=== PATIENT | female | born 1990 | race African-American/Black ===

== ENCOUNTER 2017-09-10 11:15 | Emergency (ER) | payer SELFPAY ==
[2017-09-10 11:26] VITALS: BP 114/61; PULSE 89; TEMP 98.3; BMI 22.6
[2017-09-10 12:20] LABS: PH,URINE 7.5 (4.5-8); URINE APPEARANCE Clear; URINE BILIRUBIN Negative (NEGATIVE); URINE GLUCOSE (UA) Negative (NEGATIVE); URINE KETONE Negative (NEGATIVE); URINE LEUK ESTERASE Negative (NEGATIVE); URINE NITRITE Negative (NEGATIVE); URINE PROTEIN Negative (NEGATIVE)
[2017-09-10 12:22] LABS: URINE BLOOD Trace-intact (NEGATIVE); URINE COLOR YELLOW
[2017-09-10 12:23] LABS: URINE BACTERIA FEW /hpf (NEGATIVE); URINE RBC 0-3 /hpf (0-3); URINE WBC 0-3 /hpf (3-5)
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
[2017-09-10 13:06] LABS: BASOPHIL 3.6 % (0-2.0); EOSINOPHIL 1.6 % (0-4.5); MCH 28.8 pg (25.7-33.7); MCHC 33.3 g/dl (32.0-36.0); MEAN CELL VOLUME 86.5 fl (80-96); MEAN PLT VOLUME 10.8 fl (7.5-11.1); NEUTROPHILS 56.2 % (42.8-82.8); PLATELET COUNT 206 K/MM3 (134-434); RDW 13.3 % (11.6-15.6); WHITE BLOOD COUNT 7.3 K/mm3 (4.0-10.8)
[2017-09-10 13:17] LABS: ALK PHOS 48 U/L (32-92); ANION GAP 4 (8-16); BILIRUBIN,TOTAL 0.6 mg/dl (0.2-1.0); CO2 26 mmol/L (22-28); CREATININE 0.8 mg/dl (0.6-1.3); GLUCOSE,RANDOM 88 mg/dl (74-106); SGOT/AST 32 U/L (10-42); SGPT/ALT 14 U/L (10-40); TOT PROT 7.4 g/dl (6.4-8.3)
[2017-09-10] MEDS ORDERED: DIPHTH,PERTUSS(ACELL),TET VAC 0.5 ML VIAL IM ONE (16:10)
[2017-09-10] MEDS ORDERED: NAPROXEN 500 MG TABLET (FP) ONE (16:17)
[2017-09-10] MEDS ORDERED: NAPROXEN 500 MG TABLET (FP) PO ONE (16:24)
[2017-09-10] MEDS ORDERED: AMOX TR/POT CLAV 875MG/125MG TABLETS (FP) ONE (17:07)
[2017-09-10] MEDS ORDERED: AMOX TR/POT CLAV 875MG/125MG TABLETS (FP) PO ONE (17:27)
[2017-09-11 23:00] LABS: URINE HYALINE CAST 0-3 /lpf
== END 2017-09-10 17:37 | disposition home or self-care (01) ==
LOC: FER 11:15
DX: Z04.3 Encounter for examination and observation following other accident (principal); Y04.2XXA Assault by strike against or bumped into by another person, initial encounter; Y93.89 Activity, other specified; Y92.9 Unspecified place or not applicable; F17.210 Nicotine dependence, cigarettes, uncomplicated; D64.9 Anemia, unspecified
CPT/HCPCS: 36415; 70450-TC; 70486-TC; 71260-TC; 72125-TC; 73130-TC-RT; 74177-TC; 80053; 81003; 81015; 83690; 83735; 84484; 84703; 85025; 99282-25

== ENCOUNTER 2017-11-22 02:58 | Emergency (ER) | payer OTHER ==
[2017-11-22 05:04] VITALS: TEMP 98; BMI 21.9
[2017-11-22] MEDS ORDERED: METOCLOPRAMIDE HCL INJECTION 10 MG/2 ML VIAL IVPUSH ONE (06:16)
[2017-11-22] MEDS ORDERED: SODIUM CHLORIDE 1,000 ML IV STA (06:16)
--- NOTE | 2017-11-22 06:22 | PDOC ---
History of Present Illness - General Chief Complaint: Headache Stated Complaint: HEADACHE Time Seen by Provider: 11/22/17 06:10 History Source: Patient - History of Present Illness Initial Comments: 11/22/17 06:17 27 year old female c/o frontal headache x1 day with associated nausea and photophobia. patient has a history of migraines. " I ran out of my medication." denies head injury or trauma, denies weakness, dizziness. headache is similar to her usual migraines Past History - Past Medical History Allergies/Adverse Reactions: Allergies Allergy/AdvReac Type Severity Reaction Status Date / Time No Known Drug Allergies Allergy Verified 11/22/17 05:02 Home Medications: Ambulatory Orders Amox-Tr/K Cl [Augmentin - 875Mg Tablet] 1 tab PO BID #14 tablet 09/10/17 Naproxen [Naprosyn -] 500 mg PO BID PRN #28 tablet 09/10/17 Anemia: Yes Asthma: No Cancer: No Cardiac Disorders: No Diabetes: No Seizures: No - Reproductive History Therapeutic (s) & number: Yes - Immunization History Td Vaccination: No (UNKNOWN) Immunization Up to Date: Yes - Suicide/Smoking/Psychosocial Hx Smoking Status: Yes Smoking History: Current every day smoker Have you smoked in the past 12 months: No Number of Cigarettes Smoked Daily: 2 Information on smoking cessation initiated: No 'Breaking Loose' booklet given: 09/10/17 Hx Alcohol Use: No Drug/Substance Use Hx: No Substance Use Type: Alcohol Hx Substance Use Treatment: No Review of Systems - Review of Systems Able to Perform ROS?: Yes Is the patient limited Belgian proficient: No Constitutional: No: Symptoms Reported, See HPI, Chills, Diaphoresis, Fever, Loss of Appetite, Malaise, Night Sweats, Weakness, Weight Stable, Unintentional Wgt. Loss, Unexplained wgt Loss, Other HEENTM: Yes: Other (photophobia). No: Symptoms Reported, See HPI, Eye Pain, Blurred Vision, Tearing, Recent change in vision, Double Vision, Cataracts, Ear Pain, Ocular Prothesis, Ear Discharge, Nose Pain, Nose Congestion, Tinnitus, Nose Bleeding, Hearing Loss, Throat Pain, Throat Swelling, Mouth Pain, Dental Problems, Difficulty Swallowing, Mouth Swelling ABD/GI: Yes: Nausea. No: Symptoms Reported, See HPI, Abdominal Distended, Abd. Pain w/ defecation, Blood Streaked Bowels, Constipated, Diarrhea, Difficulty Swallowing, Poor Appetite, Poor Fluid Intake, Rectal Bleeding, Vomiting, Indigestion, Abdominal cramping, Tarry Stools, Other Neurological: Yes: Headache. No: Symptoms reported, See HPI, Numbness, Paresthesia, Pre-Existing Deficit, Seizure, Tingling, Tremors, Weakness, Unsteady Gait, Ataxia, Dizziness, Other *Physical Exam - Vital Signs Last Vital Signs Temp Pulse Resp BP Pulse Ox 98.0 F 109 H 14 114/71 98 11/22/17 05:02 11/22/17 05:02 11/22/17 05:02 11/22/17 05:02 11/22/17 05:02 - Physical Exam General Appearance: Yes: Appropriately Dressed HEENT: positive: Other (PERRLA) Respiratory/Chest: positive: Lungs Clear, Normal Breath Sounds Neurologic: positive: manager production II-XII NML intact, Fully Oriented, Alert, Normal Mood/ Affect, Normal Response, Motor Strength 5/5 Progress Note - Progress Note Progress Note: A: migraines P: IVF Reglan benadryl urine . consider toradol once urine is back. *DC/Admit/Observation/Transfer Diagnosis at time of Disposition: Migraine Qualifiers: Migraine type: unspecified Status migrainosus presence: without status migrainosus Intractability: not intractable Qualified Code(s): G43.909 - Migraine, unspecified, not intractable, without status migrainosus - Referrals Referrals: Daryl Mcgregor MD [Primary Care Provider] - - Patient Instructions - Post Discharge Activity
[2017-11-22] MEDS ORDERED: METOCLOPRAMIDE HCL INJECTION 10 MG/2 ML VIAL ONE (06:34)
[2017-11-22] MEDS ORDERED: KETOROLAC TROMETHAMINE 60 MG/2 ML VIAL IVPUSH ONE (07:55)
--- NOTE | 2017-11-22 07:56 | PDOC ---
*Physical Exam - Vital Signs Last Vital Signs Temp Pulse Resp BP Pulse Ox 98.0 F 109 H 14 114/71 98 11/22/17 05:02 11/22/17 05:02 11/22/17 05:02 11/22/17 05:02 11/22/17 05:02 - Physical Exam General Appearance: Yes: Appropriately Dressed. No: Apparent Distress HEENT: positive: CHULA, Normal ENT Inspection, Normal Voice, Symmetrical, TMs Normal, Pharynx Normal Neck: positive: Trachea midline. negative: Tender, Tender lateral, Tender midline Respiratory/Chest: positive: Lungs Clear, Normal Breath Sounds. negative: Respiratory Distress, Accessory Muscle Use Cardiovascular: positive: Regular Rhythm, Tachycardia Gastrointestinal/Abdominal: positive: Normal Bowel Sounds, Soft. 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 NML intact, Fully Oriented, Alert, Normal Mood/ Affect, Normal Response, Motor Strength 03/17 ED Treatment Course - ADDITIONAL ORDERS Additional order review: Laboratory Results 11/22/17 06:18 Urine HCG, Qual Negative - Medications Given in the ED: ED Medications Discontinued Medications Generic Name Dose Route Start Last Admin Trade Name Freq PRN Reason Stop Dose Admin Diphenhydramine HCl 25 mg 11/22/17 06:17 11/22/17 06:51 Benadryl Injection - IVPB 11/22/17 06:18 25 mg ONCE ONE Administration Sodium Chloride 1,000 mls @ 1,000 mls/hr 11/22/17 06:16 11/22/17 06:51 Normal Saline - IV 11/22/17 07:15 1,000 mls/hr ASDIR STA Administration Metoclopramide HCl 10 mg 11/22/17 06:16 11/22/17 06:51 Reglan Injection - IVPUSH 11/22/17 06:17 10 mg ONCE ONE Administration Medical Decision Making - Medical Decision Making 11/22/17 07:54 I have received report from [Oral Yancey TELEPHONE CLAIMS REPRESENTATIVE] regarding this patient. Pt's initial chief complaint: [Migraine, ran out of medication] Pt's work up completed prior to sign out: [ Labs, UA, Reglan, urine ] Pt treatment given from prior staff: [Reglan, IV fluids] Pt plan to be completed: [Waiting urine consider Toradol Laboratory Results - last 24 hr 11/22/17 06:18 Urine HCG, Qual Negative ] Dispo: [ Pending] 11/22/17 10:09 She states relief after medication will DC patient home to follow-up with in the next 24 hours. Increase fluids, I discussed the physical exam findings, ancillary test results and final diagnoses with the patient. I answered all of the patient's questions. The patient was satisfied with the care received and felt comfortable with the discharge plan and treatment plan. The patient will call to arrange follow-up and will return to the Emergency Department with any new, persistent or worsening symptoms. *DC/Admit/Observation/Transfer Diagnosis at time of Disposition: Migraine Qualifiers: Migraine type: unspecified Status migrainosus presence: without status migrainosus Intractability: not intractable Qualified Code(s): G43.909 - Migraine, unspecified, not intractable, without status migrainosus - Discharge Dispostion Disposition: HOME Condition at time of disposition: Good Admit: No - Referrals Referrals: Daryl Mcgregor MD [Primary Care Provider] - (Please see doctor tomorrow 11/23 at 4:15 pm) - Patient Instructions Printed Discharge Instructions: Migraine Headaches (Alternative Therapy), DI for Migraine Additional Instructions: I have made an appointment for you to see your doctor tomorrow at 4:15 pm please take Motrin tonight as needed for pain. - Post Discharge Activity
--- NOTE | 2017-11-22 08:07 | PDOC ---
*Physical Exam - Vital Signs Last Vital Signs Temp Pulse Resp BP Pulse Ox 98.0 F 109 H 14 114/71 98 11/22/17 05:02 11/22/17 05:02 11/22/17 05:02 11/22/17 05:02 11/22/17 05:02 - Physical Exam Comments: 11/22/17 08:07 The patient was examined by [SHIRA Yancey/SHIRA Lemon] under my direct supervision. I personally evaluated the patient. I concur with the above findings and the plan of care. Patient is a 27-year-old female who presents with atypical migraine. I do not suspect subarachnoid hemorrhage at this time. Will hydrate, we'll administer Benadryl and Reglan. Will reassess. ED Treatment Course - ADDITIONAL ORDERS Additional order review: Laboratory Results 11/22/17 06:18 Urine HCG, Qual Negative - Medications Given in the ED: ED Medications Discontinued Medications Generic Name Dose Route Start Last Admin Trade Name Serjio PRN Reason Stop Dose Admin Diphenhydramine HCl 25 mg 11/22/17 06:17 11/22/17 06:51 Benadryl Injection - IVPB 11/22/17 06:18 25 mg ONCE ONE Administration Sodium Chloride 1,000 mls @ 1,000 mls/hr 11/22/17 06:16 11/22/17 06:51 Normal Saline - IV 11/22/17 07:15 1,000 mls/hr ASDIR STA Administration Metoclopramide HCl 10 mg 11/22/17 06:16 11/22/17 06:51 Reglan Injection - IVPUSH 11/22/17 06:17 10 mg ONCE ONE Administration *DC/Admit/Observation/Transfer Diagnosis at time of Disposition: Migraine Qualifiers: Migraine type: unspecified Status migrainosus presence: without status migrainosus Intractability: not intractable Qualified Code(s): G43.909 - Migraine, unspecified, not intractable, without status migrainosus - Referrals Referrals: Daryl Mcgregor MD [Primary Care Provider] - - Patient Instructions - Post Discharge Activity
[2017-11-22] MEDS ORDERED: KETOROLAC TROMETHAMINE 30 MG/1 ML VIAL ONE (09:37)
[2017-11-22 11:17] VITALS: BP 118/78; PULSE 98
== END 2017-11-22 10:30 | disposition home or self-care (01) ==
LOC: JER 02:58
PROC: 3E033GC Introduction of Other Therapeutic Substance into Peripheral Vein, Percutaneous Approach (ICD-10-PCS; principal; 2017-11-22)
PROC: 3E0333Z Introduction of Anti-inflammatory into Peripheral Vein, Percutaneous Approach (ICD-10-PCS; 2017-11-22)
PROC: 3E0337Z Introduction of Electrolytic and Water Balance Substance into Peripheral Vein, Percutaneous Approach (ICD-10-PCS; 2017-11-22)
DX: G43.909 Migraine, unspecified, not intractable, without status migrainosus (principal); F17.210 Nicotine dependence, cigarettes, uncomplicated
CPT/HCPCS: 84703; 96361; 96374; 96375; 99282-25